=== PATIENT | male | born 1960 | race Caucasian/White ===

== ENCOUNTER → 2022-02-17 | Outpatient (CLI) | payer SELFPAY ==
--- NOTE | 2022-02-17 16:50 | Diagnostic Imaging Report ---
INDICATION: Hyperlipidemia. TECHNIQUE: The CT cardiac calcium score was performed in the routine fashion. Dose reduction protocol was used. FINDINGS: Raw data images demonstrate no overt adenopathy in the mediastinum or eleonora. There is some linear scarring in the left lung. There is no consolidation. The entirety of the lung hathaway was not imaged. There are calcifications in the coronary arteries. A calcium score of 54.6 was given for the left main coronary artery. A calcium score of 328.0 was given for the LAD. A calcium score of 227.8 was given for the circumflex coronary artery. The right coronary artery showed a calcium score of 0. The total calculated calcium score was 610.4. IMPRESSION: Multiple coronary calcifications are visualized with a calcium score of 610.4, compatible with extensive overall plaque burden. Consider further workup as clinically warranted. Dictated by: Dictated on workstation # [id number]
== END ==
LOC: RAD FS 15:29
PROVIDERS: ATTEND Family Medicine
DX: E78.2 Mixed hyperlipidemia (principal); I25.10 Atherosclerotic heart disease of native coronary artery without angina pectoris
CPT/HCPCS: 75571